=== PATIENT | male | born 1960 | race Two or more races ===

== ENCOUNTER 2017-07-15 07:25 | Outpatient (CLI) | payer OTHER | END 2017-07-15 07:38 | disposition home or self-care (01) | LOC: LAB 07:25 | DX: E88.89 Other specified metabolic disorders (principal); E55.9 Vitamin D deficiency, unspecified; M85.9 Disorder of bone density and structure, unspecified; D63.8 Anemia in other chronic diseases classified elsewhere; E03.8 Other specified hypothyroidism; E56.1 Deficiency of vitamin K; M81.8 Other osteoporosis without current pathological fracture ==

== ENCOUNTER 2017-07-16 09:55 | Outpatient (CLI) | payer OTHER | END 2017-07-16 10:03 | disposition home or self-care (01) | LOC: LAB 09:55 | DX: D63.8 Anemia in other chronic diseases classified elsewhere (principal) ==

== ENCOUNTER 2017-09-16 10:56 | Outpatient (CLI) | payer OTHER | END 2017-09-16 10:57 | disposition home or self-care (01) | LOC: LAB 10:56 | DX: M86.9 Osteomyelitis, unspecified (principal); L08.9 Local infection of the skin and subcutaneous tissue, unspecified; L01.00 Impetigo, unspecified ==

== ENCOUNTER → 2017-11-27 | Outpatient (CLI) | payer OTHER | END | disposition home or self-care (01) | LOC: LAB 08:18 | DX: M25.522 Pain in left elbow (principal); M79.602 Pain in left arm; Z22.322 Carrier or suspected carrier of Methicillin resistant Staphylococcus aureus ==

== ENCOUNTER 2018-06-29 07:33 | Outpatient (CLI) | payer OTHER | END 2018-06-29 10:30 | disposition home or self-care (01) | LOC: LAB 07:33 | DX: N39.0 Urinary tract infection, site not specified (principal); Z22.322 Carrier or suspected carrier of Methicillin resistant Staphylococcus aureus; Z76.89 Persons encountering health services in other specified circumstances; I49.8 Other specified cardiac arrhythmias; M24.512 Contracture, left shoulder ==

== ENCOUNTER 2018-07-14 05:31 | Day surgery (SDC) | payer OTHER ==
[~2018-07-14 05:31] MED LIST: FORTAMET1000 MG PO; GLIMEPIRIDE4 MG PO; JANUVIA100 MG PO; LIPITOR20 MG PO; LISINOPRIL20 MG PO; SINGULAIR10 MG PO; ZANTAC300 MG PO
== END 2018-07-14 13:45 | disposition home or self-care (01) ==
LOC: CIR.AMB 05:31
DX: M75.122 Complete rotator cuff tear or rupture of left shoulder, not specified as traumatic (principal); M13.812 Other specified arthritis, left shoulder; M24.512 Contracture, left shoulder; M75.22 Bicipital tendinitis, left shoulder